=== PATIENT | female | born 1990 | race Caucasian/White ===

== ENCOUNTER 2019-05-24 19:34 | Emergency (ER) | payer SELFPAY ==
[~2019-05-24] VITALS: Ht 157.5 cm; Wt 90.7 kg
[2019-05-24 19:45] VITALS: BP_SYST 140
--- NOTE | 2019-05-24 19:50 | NUR ---
Patient triaged and placed in waiting room. VSS and patient appears in no acute distress at this time. Accompanied by family, awaiting available bed, and MD notified of need for MSE.
--- NOTE | 2019-05-25 | NUR ---
Patient to ER bed 8 to gown for evaluation. Side rails up.
--- NOTE | 2019-05-25 00:15 | NUR ---
Pt came to the ED for laceration to L sided of lip post falling down stairs in the dark. Reports she scraped her knee. Denies KO. denies taking medications prior to ED arrival. Denies n/v/d or fever. Denies chest pain or SOB. no other complaints/injuries noted. Will cont. to monitor
--- NOTE | 2019-05-25 00:24 | NUR ---
ER Dr. Adame at bedside examining patient.
[2019-05-25] MEDS ORDERED: hydrALAZINE HCL 20 MG/ML VIAL IVP ONE (00:45)
[2019-05-25] MEDS ORDERED: LIDOCAINE/EPI 2% 1:100000 20 ML VIAL INJ ONE (00:45)
--- NOTE | 2019-05-25 01:00 | NUR ---
Pt resting comfortably in bed, no signs of acute distress. Will cont. to monitor.
--- NOTE | 2019-05-25 02:00 | NUR ---
Pt resting comfortably in bed, no signs of acute distress. Will cont. to monitor.
[2019-05-25] MEDS ORDERED: IBUPROFEN 600 MG TABLET PO ONE (02:30)
--- NOTE | 2019-05-25 03:00 | NUR ---
Dr. Adame at bedside performing laceration repair. Tolerated well. Will cont. to monitor.
[2019-05-25] MEDS ORDERED: IBUPROFEN 600 MG TABLET ONE (03:01)
[2019-05-25] MEDS ORDERED: CEPHALEXIN 500 MG CAPSULE PO ONE (03:30)
[2019-05-25] MEDS ORDERED: BACITRACIN 1 GM OINT TP ONE ×2 (03:30→03:51)
[2019-05-25 04:03] VITALS: BP_SYST 140
--- NOTE | 2019-05-25 04:03 | NUR ---
dPatient given written and verbal discharge instructions and verbalizes understanding. ER MD Dr. Adame discussed with patient the results and treatment provided. Patient in stable condition. ID arm band removed. Rx of amoxicillin given. Patient educated on pain management and to follow up with PMD. Pain Scale 0/10. Opportunity for questions provided and answered. Medication side effect fact sheet provided.
== END 2019-05-25 04:03 | disposition home or self-care (01) ==
LOC: SED 19:34
DX: S01.511A Laceration without foreign body of lip, initial encounter (principal); W10.9XXA Fall (on) (from) unspecified stairs and steps, initial encounter; Y93.89 Activity, other specified; Y92.89 Other specified places as the place of occurrence of the external cause; Y99.8 Other external cause status
CPT/HCPCS: 99283